=== PATIENT | female | born 1995 | race African-American/Black ===

== ENCOUNTER 2022-08-26 07:55 | Emergency (ER) | payer MEDICAID ==
[~2022-08-26] VITALS: Ht 160 cm; Wt 108.9 kg
--- NOTE | 2022-08-26 08:10 | NUR ---
Patient to ER bed TENT1 to gown for evaluation. Side rails up.
[2022-08-26 08:11] VITALS: BP_SYST 138
[2022-08-26] MEDS ORDERED: D-ME118S48 PO (08:18)
[2022-08-26] MEDS ORDERED: PRED50TA PO (08:18)
--- NOTE | 2022-08-26 08:20 | NUR ---
MD PETTIT TO TENT TO MSE PATIENT. PT VSS. NAD NOTED. AWAITING ADDITIONAL ORDERS. WILL CONT TO MONITOR PT.
[2022-08-26 08:32] VITALS: BP_SYST 131
--- NOTE | 2022-08-26 08:32 | NUR ---
Patient given written and verbal discharge instructions and verbalizes understanding. ER MD discussed with patient the results and treatment provided. Patient in stable condition. ID arm band removed. IV catheter removed intact and dressing applied, no active bleeding. Rx of PREDNISONE AND DM COUGH SYRUP given. Patient educated on pain management and to follow up with PMD. Pain Scale 2/10. Opportunity for questions provided and answered. Medication side effect fact sheet provided.
== END 2022-08-26 08:32 | disposition home or self-care (01) ==
LOC: SED 07:55
DX: B34.9 Viral infection, unspecified (principal); R05.9 Cough, unspecified; J02.9 Acute pharyngitis, unspecified; Z79.899 Other long term (current) drug therapy; Z20.822 Contact with and (suspected) exposure to COVID-19
CPT/HCPCS: 36415; 99283

== ENCOUNTER 2022-09-13 08:44 | Emergency (ER) | payer MEDICAID ==
[~2022-09-13] VITALS: Ht 160 cm; Wt 108.9 kg
[~2022-09-13 08:44] MED LIST: D-ME118S48 PO; PRED50TA PO
[2022-09-13 08:50] VITALS: BP_SYST 120
[2022-09-13 14:36] VITALS: BP_SYST 120
== END 2022-09-13 14:35 | disposition left against medical advice (07) ==
LOC: SED 08:44
DX: J02.9 Acute pharyngitis, unspecified (principal); R05.9 Cough, unspecified; Z53.21 Procedure and treatment not carried out due to patient leaving prior to being seen by health care provider
CPT/HCPCS: 99283